=== PATIENT | male | born 1940 | race Caucasian/White ===

== ENCOUNTER 2022-01-01 16:29 | Inpatient (IN) | payer OTHER, MEDICARE ==
[~2022-01-01] VITALS: Ht 179.1 cm; Wt 101.7 kg
[2022-01-01] MEDS ORDERED: LIPITOR10 MG PO (22:40)
[2022-01-01] MEDS ORDERED: AMANTADINE100 M1 PO (22:40)
[2022-01-01] MEDS ORDERED: COZAAR 25 MG TA25 M1 PO (22:40)
[2022-01-01] MEDS ORDERED: LOPRESSOR50 MG PO (22:41)
[2022-01-01] MEDS ORDERED: NAMENDA 10 MG T10 MG PO (22:41)
[2022-01-01] MEDS ORDERED: CELEXA 20 MG TA20 MG PO (22:41)
--- NOTE | 2022-01-01 23:46 | NUR ---
PATIENT WAS ADMITTED FROM ER TO 517A FOR DEMENTIA BEHAVIOR/DISTURBANCES UNDER THE CARE OF DR. NUNN. HE IS ALERT AND AWAKE. VERY AGGITATED AND CONFUSED. HE DENIES PAINS/IS/AVH/HI.HE IS THREE AFFILIATED AND ABLE TO MAKES HIS NEEDS KNOWN.LUNGS ARE CLEAR BS ACTIVE X4 QUADS. HE IS CONTINENT/ INCONTINIET OF BLADDER. HE HAS MOLES ALL OVER HIS BACK AND A CYST AT HIS UPPER TOP BUTTOCKS AREA. CALL TO DR MADSEN FOR MEDICATION VERIFICATION AND SOME ANTIBIOTICS TO BE CLEARIFIED AT AM NO INDICATIONS WERE NOTED AT THIS TIME.CONSULT CALL PLACED TO PRISCILA LORENZO. CALL TO SPOUSE FOR CONSENT NO RESPONSE AND MAIL BOX WAS FULL WILL REPEAT IN AM. VITAL SIGN ARE STABLE AT 97.3, 160/73,60,18, 94% AND WT @ 231.2 LBS. PATIENT IN BED YELLING"HELP" WITHOUT ANY SPECIFIC REQUEST AT THIS TIME. YELLOW SOCKS ON, BED IS LOW, LOCKED AND ALARMED. CONTINUE CARE
[2022-01-02 05:53] LABS: CHOLESTEROL 109 mg/dL (<200); HDL CHOLESTEROL 43 mg/dL (>40); LDL CHOLESTEROL 48 mg/dL (<100); TC:HDL 2.5 Ratio (Not establshd); TRIGLYCERIDE 92 mg/dL (<150); VLDL 18 mg/dL (<40)
[2022-01-02 05:57] LABS: SERUM ASSESSMENT Clear
[2022-01-02 09:32] VITALS: BP 147/94
[2022-01-02 09:52] LABS: CALCIUM 8.7 mg/dL (8.5-10.1); CREATININE 1.2 mg/dL (0.7-1.3); POTASSIUM 3.6 mmol/L (3.5-5.1)
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
--- NOTE | 2022-01-02 16:14 | NUR ---
Meeting with patient and Dr. Basilio in 's office. Patient was somewhat argumentative. Patient reported to Dr. Basilio that he was no depressed and did not have dementia. Dr. Basilio reported that the nurses and records from [facility] reflected this. Patient became agitated expressing that the nurses do not know what they are doing. Patient reports to being to Felipa since 1962. Patient has 3 children. 1 child is from pancreatic cancer. The remaining 2 children reside in close proximity in the [facility] area. Patient has all male grandchildren. 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 The patient is an only child. He states his father went to school until the 8th grade and that his mother earned a college diploma. The patient reported his parents to still be living. When Dr. Basilio asked how old his parents would be, the patient reported his parents were born in 1910 and 1911 and that they are 35. The patient reports his parents were never diagnosed with Alzheimers and/or dementia and that they were both very smart. The patient was born and raised in [place]. He attended college at [employer], stating it is important to go to school where you intend to practice so you know the law there. The patient reports to having high blood pressure but not knowing the medication he takes for it. The patient denied any physical abuse/trauma. Dr. Basilio completed a SLUMS with the patient. The patient scored a 9.
--- NOTE | 2022-01-02 16:32 | NUR ---
Phone call to Felipa. Scheduled family meeting for 01/05 at 2:30pm
[2022-01-02 19:15] VITALS: BP 142/53
[2022-01-02 19:25] VITALS: BP 142/53
--- NOTE | 2022-01-02 22:10 | EKG ---
[address] [place] [address] ELECTROCARDIOGRAM REPORT Name: LUZ HOROWITZ Room #: 517-A ADM IN [facility].#: [id number] Admission: 01/01/22 Attend Phys: Matthew Basilio DO Discharge: Date of : 38 Report #: [id number] [facility] Test Date: 2022-01-02 Test Time: 16:57:37 Pat Name: LUZ HOROWITZ Department: Room: [facility] A Gender: M Resource Specialist Teacher: VANDA : 1940 Requested By: Matthew Basilio Order Number: [id number] MD: Mandeep Higginbotham Measurements Intervals [place] Rate: 60 P: 43 DE: 243 QRS: -17 QRSD: 93 T: 25 QT: 519 QTc: 519 Interpretive Statements Sinus rhythm FIRST DEGREE AV BLOCK leftward axis deviation NS ST/T wave abnormalities Compared to ECG 07/20/2012 06:51:59 no signficant changes Electronically Signed On 01-02-2022 22:09:55 IT SUPPORT ANALYST by Mandeep Higginbotham [email or web address] <ELECTRONICALLY SIGNED> By: Mandeep Higginbotham MD 01/02/222208 56 56 Mandeep Higginbotham MD /EPI
[2022-01-03 01:06] LABS: GLYCOHEMOGLOBIN (HGB A1C) 5.4 % (4.8-5.6)
--- NOTE | 2022-01-03 02:17 | NUR ---
PATIENT CARE IS WAS RESUMED AT 1900.HE IS AWAKE IN HIS ROOM.HE IS CONFUSSED. IN BED AND ABLE TO VERBALIZE HIS NEEDS. HE IS A MAX ASSIST WITH CARE, TRANSFER AND VINAY-CARE. HE DENIES PAINS/SI/AVH/HI. HE WAS COOPERATIVE WITH CARE. TOOK HIS MEDS WHOLE AND ATE HIS SNACKS.VERY THANKFUL FOR CARE AND ASSISTANCE. VITAL SIGN WNL. BED IS LOW, LOCKED AND ALARMED. Q12 MINUTES CHECK IS ONGOING.
[2022-01-03 08:51] VITALS: BP 153/75
--- NOTE | 2022-01-03 11:18 | NUR ---
The patient's was called to gather information for the patient's assessment. The was able to assist with some information to assist with finishing up a part of his assessment.
--- NOTE | 2022-01-03 12:54 | NUR ---
Alert and orientated to name only this AM. Much quieter today. Calm, cooperative and compliant. Denies SI/HI. Cooperative with ADLs. Breath sounds clear. Reg HR with rub auscultated. Dr. Knox notified when rounding. Color pink with brisk capillary refill and palpable peripheral pulses. Incontinent of yellow urine and liquid brown stool. Active bowel sounds over large, rounded abdomen. Reddness between buttocks, cleaned and zincpaste applied. Able to stand and bear wt. Currently sitting in dining room without s/o distress.
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
[2022-01-03 19:33] VITALS: BP 164/72
--- NOTE | 2022-01-03 21:46 | NUR ---
At onset of shift pt was sitting in day room calmly watching TV. This shift pt was alert and oriented x1. Pt was overall paranoid, uncooperative, angry, and rude to staff. Pt refused to take his medications stating that "no doctor of mine prescribed these." Pt insisted he only takes two vitamins at bedtime. RN went over pt's medications but pt did not believe he was prescribed any of them. Pt asked where his was and RN explained to pt that his was at home and he was in the hospital. Pt asked what hospital he was in, RN stated [facility] on [address] and pt responded "you're incompetent as hell." RN told pt to sleep well and if he needed anything to please let staff know. 12 minute rounded were completed on pt. Pt is a high fall risk. Fall precautions are in place. Will continue to monitor.
[2022-01-03 23:09] VITALS: BP 178/82
[2022-01-03 23:45] VITALS: BP 164/72
--- NOTE | 2022-01-04 02:17 | NUR ---
At 2309 pt was observed by HIM SPECIALIST during rounds to be lying on the floor of his room face down. RN asked pt if he fell and pt made nonsenisical statements. Staff assisted pt with rolling over to his side, then to a sitting position and then to a alyssa chair. While helping pt move to alyssa chair, pt was yelling at staff, calling staff stupid, accusing staff of "bending him." Vital signs were obtained and pt was assessed. No obvious signs of injury and pt denied being in pain. Other questions pt refused to answer, instead yelling at staff "you are incompetent. You don't want to know everything because you are women. Incompetent women." Pt was moved out to day room in alyssa chair to be closer to staff for observation. RN notified propellant charge zone assembler, melissa fischer, hospitalist. Donna Hernandez NP ordered a CT of the head. Pt continued yelling and being verbally hostile towards staff. RN called Salima Farmer and obtained orders for one time dose 5mg Haldol IM to help pt calm down before the CT scan. At time of CT pt was cooperative and less vocal, but was still angry. At this time, CT scan results are pending. Will report back when CT scan results are reported.
[2022-01-04 08:00] VITALS: BP 140/87
[2022-01-04 09:15] VITALS: BP 140/87
--- NOTE | 2022-01-04 13:28 | NUR ---
Assumed pt care this morning from overnight shift. Pt presented alert and oriented to self and place during this time. Pt stated that he needed to call his in order to pay an electricity bill "so that they don't think I'm a freeloader." Pt was assured that he would be able to speak to his on the phone after breakfast, and informed that staff had also spoken to his earlier. Pt informed that his hearing aid vp account director was found, and that his hearing aids were currently charging. Voiced thanks during this time. informed of this as well to help alleviate concerns about hearing aids. Pt stated only depression and anxiety was "from that [employer] power bill." Denied hi/si. Denied hallucinations at this time. Denied pain. Lung sounds clear. Bowel sounds active. Pt has presented restless, and has been assisted to bathroom and helped to walk around several times during this shift. Pt continued to present restless and agitated more so after lunch, and started to curse at staff, and would not stop getting out of chair despite staff redirection. Pt continued to yell that he wanted his , and increasingly started to present agitated by further yelling directed at staff. PRISCILA Farmer called, and IM haldol 5 mg stat given per order. Pt initially stated "I'm not taking this without knowing what it is" but staff explained medication again to him. No manual hold needed during this time. Pt currently sitting in chair and in group. No further concerns at this time.
[2022-01-04 19:16] VITALS: BP 127/61
--- NOTE | 2022-01-04 22:42 | NUR ---
At onset of theatrical scenic designer pt was sitting in alyssa chair in day room. This shift pt was alert and oriented only to self. Pt took his medication crushed in ice cream. Pt and RN conversed some; pt was pleasant during this time. Pt did not know he was in the hospital and did not know what day it was. RN explained to pt that his is at home and cared for. 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 For bed time, RN sat pt in a dark corner of the day room and applied CPAP machine to the patient. Pt can only use his CPAP in eyeline of staff and given pt's fall last night, RN thought it was best to have pt sleep in day room close to staff. Pt denied psych questions and stated he was in a good mood. There was some irritability when CPAP was being applied, but no name calling or delusional statements made. Pt is high fall risk. Fall precautions are in place. Will continue to monitor.
[2022-01-05 09:23] VITALS: BP 158/87
[2022-01-05 09:30] VITALS: BP 158/87
--- NOTE | 2022-01-05 09:45 | NUR ---
New admit to [facility] with dementia and behaviors. On regular diet eating 75-100% of majority of meals. BMI 32.6, obese. On lipitor, lipids wnl. Presents low nutrition risk
--- NOTE | 2022-01-05 16:28 | NUR ---
Family meeting for patient via phone. Present were HAYES Guevara, Felipa (), Carson (son), Skylar Topete (private duty nurse for patient) and the patient. The patient had a difficult time hearing. The patient reported that the doctor was, "committing murder". Due to the patient's difficulty with hearing, not understanding and argumentativeness, the family said their goodbyes and the patient was escorted out of the room. Dr. Basilio reviewed medication. The patient has received care from Dr. Austin with 's memory clinic. Dr. Basilio reported that he normally does not do another existensive workup as the memory care facility would have completed this. The patient currently has approximately 70% care in the home. Dr. Basilio recommended 100% care. Dr. Basilio would like for the patient to remain hospitalized until approximately 01/12 to continue addressing the patient's agitation, aggression and monitor medication as the patient has been somewhat sedated. The patient is in need of outpatient psychiatry. The nurse and Felipa will work on arranging this for the patient tomorrow. The family reports the home already has adaptations in place such as bars in the bathroom.
--- NOTE | 2022-01-05 18:40 | NUR ---
Assumed pt care this morning from overnight shift. Pt presented alert and oriented to self only, and was hostile with staff, yelling and screaming when staff approached. Injection of haldol given by overnight shift at shift change due to these behaviors. Pt calmed after this, being more amicable to sitting in chair, and stopped cursing at staff after injection. Pt denied depression prior to this, but stated anxiety, and yelled "I want to go home damn it- get me the fuck out of here." Pt denied hallucinations though could be seen speaking to self and cursing aloud even if staff was not present by pt. Pt did not make any si/hi comments at this time. No pain reported by pt. Spoke with pt , Felipa, and home health nurse Skylar during this shift. Updated both on pt status at this time. Pt hearing aids charged, and pt able to speak to and home health nurse at this time. Family meeting had @2:30. Passed along information provided by and home health nurse that pt son, Carson, wanted to join meeting, to CM. Pt took all medications crushed in pudding today. All medications taken and well tolerated. Toileted several times during shift. Spoke with after family meeting with assistance of cm. No further concerns.
[2022-01-05 19:40] VITALS: BP 140/75
[2022-01-05 19:46] VITALS: BP 140/75
--- NOTE | 2022-01-06 04:14 | NUR ---
PATIENT CARE WAS RESUMED AT 1900. HE IS AWAKE AND ABLE TO VERBALIZE NEEDS. LUNGS ARE CLEAR, BS ACTIVE X4 QUAD. MAS ASISTT WITH CARE. HE TOOK HIS MEDS WHOLE. INCONTININET OF BLADDER. BED IS LOW, LOCKRD AND [id number] CHECK IS ON GOING. HE DENIES PAINS/SI/AVH/HI.
[2022-01-06 07:00] VITALS: BP 146/61
[2022-01-06 09:02] VITALS: BP 146/61
--- NOTE | 2022-01-06 10:16 | NUR ---
RESUMMED CARE FROM OVERNIGHT SHIFT THIS AM PATIENT SITTING IN DAY ROOM QUIET. PATIENT ATE BREAKFAST TOOK MEDICATION WITHOUT INCIDENCE; PATIENT DENIES SI/HI/AH/VH AT PRESENT. PATIENT ALERT ORIENTED TIMES 2 CALM COOPERATIVE THIS AM. PAIIENTS ABDOMEN SOFT BOWEL SOUNDS PRESENT PATIENTS LUNGS CLEAR. PATIENT DENIES DEPRESSION OR ANXIETY. PATIENT WANTS TO GO HOME ASLEEP DURING MORNING GROUP. WILL CONTINUE TO MONITOR PATIENT FOR SAFETY AND BEHAVIORS.
[2022-01-06 18:51] VITALS: BP 138/70
[2022-01-06 19:25] VITALS: BP 138/70
--- NOTE | 2022-01-06 23:02 | NUR ---
PATIENT CARE WAS RESUMED AT 1900. HE WAS IN THE DAY AREA TALKING WITH FAMILY MEMBER ON THE PHONE. HE CONTINUE TO WANT TO GET UP FROM CHAIR AND NOT FOLLOWING DIRECTION FROM THE NURSING STAFF. HE TOOK HIS MEDS WHOLE AND MAX ASSIST WITH CARE AND TRANSFER. DENIES PAINS/SI/AVH/HI. HE IS SLEEING WITH A C-PAP AT THE DININIG AREA. SPOKE WITH SON MISAEL. Q12 MINUTES CHECK ONGOING. CONTINUE CARE
--- NOTE | 2022-01-07 08:40 | NUR ---
Phone call to son, Carson, with nurse fermentation manager, Meghana. SW and nurse fermentation manager informed Carson that someone who identified themselves as the patient's son had called multiple times and had been beligerant. Carson stated that he didn't make any calls and that it may have been his brother, Roscoe ([phone]), who resides in [place]. The SW and nurse fermentation manager provided Carson with the confidentiality code for the patient as well as the best times to reach out (10-12, 4-6). Carson reported that he would like for the patient to be able to return home as he knows that is what the mother wants.
--- NOTE | 2022-01-07 09:44 | NUR ---
IRRITABLE AND DEMANDING UPON INITIAL APPROACH THIS AM-THIS RN ASSISTING PATIENTS INTO THE DAYROOM AND SERVING BREAKFAST-PT INSISTING THAT THOSE TASKS CAN WAIT HE NEEDS ASSISTANCE IN MAKING A PHONE CALL "RIGHT NOW" INFORMED THAT PHONES ARE NOT AVAILABLE UNTIL AFTER BREAKFAST AND HE BEGAN TO SWEAR AT THIS NURSE. WAS CALMER AFTER EATING BREQAKFAST AND DID TAKE HIS MEDICATIONS WITHOUT INCIDENT. ORIENTED TO PERSON ONLY
[2022-01-07 09:55] VITALS: BP 158/74
[2022-01-07 10:45] VITALS: BP 182/91
--- NOTE | 2022-01-07 11:33 | EKG ---
[address] [place] [address] ELECTROCARDIOGRAM REPORT Name: LUZ HOROWITZ Room #: 517-A ADM IN ..#: [id number] Admission: 01/01/22 Attend Phys: Matthew Basilio DO Discharge: Date of : 36 Report #: [id number] [facility] Test Date: 2022-01-07 Test Time: 10:41:29 Pat Name: LUZ HOROWITZ Department: Room: [facility] A Gender: M Shell Fisherman: MORGAN : 1940 Requested By: Matthew Basilio Order Number: [id number] MD: Sadi Vivar Measurements Intervals Hamill Rate: 53 P: 33 OH: 255 QRS: -17 QRSD: 96 T: 2 QT: 460 QTc: 432 Interpretive Statements Sinus rhythm Prolonged OH interval Probable left ventricular hypertrophy Anterior Q waves, possibly due to LVH Compared to ECG 01/02/2022 16:57:37 Left ventricular hypertrophy now present Q waves now present Left-axis deviation no longer present Electronically Signed On 01-07-2022 11:33:00 [employer] GR[employer] by Sadi Vivar [email or web address] <ELECTRONICALLY SIGNED> By: Sadi Vivar MD, FACC 01/07/22 1133 [id number] [id number] Sadi Vivar MD, [facility] /EPI
--- NOTE | 2022-01-07 11:59 | NUR ---
INCONTINENT OF LARGE AMOUNT OF STOOL/URINE-REQUIRES ASSIST 0F 2-3 STAFF TO PROVIDE INCONTINENT CARE.
--- NOTE | 2022-01-07 12:00 | NUR ---
BEGAN YELLING/SCREAMING AT GUITAR REPAIRER WHEN THEY ATTEMPTED TO PUSH UP TO TABLE TO EAT LUNCH TRAY-YELLING OBSCENITIES AT NURSE INSISTING THAT HE BE BROUGHT THE PHONE IMMEDIATLY.HAYES CONTACTED
[2022-01-07 19:35] VITALS: BP 149/67
--- NOTE | 2022-01-08 01:42 | NUR ---
PATIENT CARE WAS RESUMED AT 1900. HE IS A MAX ASSIST WITH CARE. LUNGS ARE CLEAR BS ACTIVE X4 QUAD. HE DENIES PAINS/SI/AVH/HI. HE TOOK OFF HIS C-PAP.HE IS ABLE TO VERBALIZE HIS NEEDS. TOOK HIS MEDS WHOLE. MAX ASIST WITH TRANSFER AND VINAY CARE. YELLOW TOP AND SOCKS ARE ON. BED IS LOW LOCKED AND ALARMED. [id number] CHECK IS ONGOING. CONTINUE CARE
[2022-01-08 07:39] VITALS: BP 150/64
[2022-01-08 09:24] VITALS: BP 150/64
--- NOTE | 2022-01-08 10:16 | NUR ---
RESUMMED CARE FROM OVERNIGHT SHIFT THIS AM PATIENT SITTING IN DAY ROOM QUIET. PATIENT ALERT ORIENTED TO SELF AND SITUATION, PATIENT DENIES SI/HI/AH/VH AT PRESENT. PATIENT ATE BREAKFAST TOOK MEDICATION WITHOUT INCIDENCE. PATIENT IS AT TIMES CONFUSED HE WANTS TO GO HOME. PATIENTS ABDOMEN SOFT BOWEL SOUNDS PRESENT. PATIENTS LUNGS CLEAR PATIENT IS IN GROUP BUT MIMIMAL PARTICIPATION. PATIENT CALM COOPERATIVE WILL CONTINUE TO MONITOR PATIENT FOR SAFETY AND BEHAVIORS.
[2022-01-08 19:50] VITALS: BP 151/70
--- NOTE | 2022-01-09 04:54 | NUR ---
Assumed care of pt at 1900. Pt calm et cooperative this shift. Took medications whole without difficulty. Ambulates the halls with assistance of gerichair this shift. Socialized with peers in dayroom watching TV until HS. VSWNL. Health assessment with no abnormalities noted this shift. Pt denies SI/Hi at present time. Currently resting in gerichair with eyes closed. Will continue to monitor per unit protocol.
[2022-01-09 09:48] VITALS: BP 174/87
--- NOTE | 2022-01-09 11:22 | NUR ---
Drowsy this AM needing more assistance to stand. Orientated to name only. Calm, cooperative and compliant. Breath sounds clear. Reg HR with rub auscultated. Color pink with brisk capillary refill and palpable peripheral pulses. +2 edema in lower extremities. Incontinent of yellow urine and smear of stool. Active bowel sounds over soft, rounded abdomen. Able to stand with assistance. Zinc paste applied to buttocks, slight reddness. Was able to brush teeth and wash face when handed items.
[2022-01-09 12:30] VITALS: BP 144/76
--- NOTE | 2022-01-09 14:33 | NUR ---
Dr. Basilio informed the SW that the patient's did not feel the patient needed [address] Basilio is scheduling a family meeting with the family today. The SW informed Dr. Basilio of training and that the SW would probably get out of training after 2:00pm.
--- NOTE | 2022-01-09 14:59 | NUR ---
- facilitated phone call with patient and patient's . Patient was brought into his room and the phone put on speaker so he could hear his more easily. Patient and , Felipa, spoke lovingly with each other, expressing love and how much they missed each other. Patient was appropriate and appreciative.
[2022-01-09 19:51] VITALS: BP 150/80
--- NOTE | 2022-01-10 05:39 | NUR ---
Assumed care of pt at 1900. Pt calm et cooperative this shift. Took medications whole without difficulty. Pt isolated in room et in bed most of shift. Ambulation was not witnessed this shift. VSWNL. Health assessment with no abnormalities noted this shift. Pt denies SI/HI at present time. Pt's room was moved into a shared room this shift. Currently resting in bed with eyes closed. Will continue to monitor per unit protocol.
[2022-01-10 10:41] VITALS: BP 160/88
[2022-01-10 11:15] VITALS: BP 135/68
--- NOTE | 2022-01-10 11:29 | NUR ---
Alert and orientated to name only this AM. Denies SI/HI. Calm, cooperative and compliant with meds this AM. Breath sounds clear. Reg HR with rub auscultated. Color pink with brisk capillary refill and palpable peripheral pulses. +1 edema in lower extremities. Brief dry this AM. Active bowel sounds over soft, rounded abdomen. Last BM yesterday. Sitting in chair in day room all AM sleeping. Ate 100% of breakfast with assistance.
--- NOTE | 2022-01-10 13:29 | NUR ---
Phone call to Felipa regarding discharge. Felipa reported the patient would be returning home. Felipa would like for discharge to be coordinated with the private nurse, Skylar. Felipa further reported the patient is unable to get in and out of the car. The will arrange Express.
[2022-01-10 20:04] VITALS: BP 155/55
--- NOTE | 2022-01-10 23:13 | NUR ---
At onset of manufacturing supervisor 2nd shift pt was sitting in alyssa chair in day room. This shift pt was sleeping but arousable and only oriented to self. Pt did say hello to RN and stated he was doing "fine." Pt did keep his eyes shut for most of interaction. Pt was compliant with vital signs and medications. Pt did not answer psych questions, but there was no sign of distress indicating SI or HI. Pt was overall calm. Pt is a high fall risk. Fall precautions are in place. Will continue to monitor.
[2022-01-11 08:45] VITALS: BP 166/78
[2022-01-11 08:51] VITALS: BP 169/72
[2022-01-11 10:55] VITALS: BP 166/78
--- NOTE | 2022-01-11 17:20 | NUR ---
Assumed pt care this morning from overnight shift. Pt presented alert and oriented to self only during this time, and was resistant to cares during this shift. Pt dressed, toileted, and assisted with glasses and hearing aides this morning to help with morning adls. Pt denied depression and anxiety at this time, mumbling "no, why would I have that" to staff. Pt denied si/hi at this time. Pt denied hallucinations, though was noted to speak to self and mumble on occassion. Pt voiced wanting to go home during assessment, and would ask when he would go home. Pt assured that provider would be seeing him today and that primary psychiatrist would be in tommorrow. Pt denied pain when asked. Bowel sounds active. Lung sounds clear. Last BM 2 days ago per report. Slight bradycardia- 54 with recheck 58. Held metoprolol. Pt has been toileted and repositioned on this shift numerous times. Pictures of pt cyst and moles on back taken per hospitalist order and placed in chart. Pt continues to remain confused and combative to cares. Has spoken to today. Currently in bed resting. No further concerns at this time.
[2022-01-11 19:30] VITALS: BP 137/79
[2022-01-11 19:40] VITALS: BP 166/78
--- NOTE | 2022-01-11 22:08 | NUR ---
Assumed care on 01/11/22 @ 1900, in bed, awakened to voice and with encouragement took meds whole with water. HRRR, Lungs CTA bilat, ABD N x 4Q. Patient takes his hospital gown off and sleeps with no clothes on. High fall risk, bed in low position, bed alarm set, will continue to monitor for comfort and safety as per unit protocol.
[2022-01-12 08:00] VITALS: BP 150/86
--- NOTE | 2022-01-12 10:36 | NUR ---
Nutrition followup: pt continues on [facility] unit with dementia/behaviors. Eating average of 70% of meals, occasional refusal. Possible 7# weight decline in 10 days per [employer] weights. BMI 31, obesity class 1. Would suggest obtaining a standing scale weight for accuracy. Nsg reported pt is requiring to be fed by staff right now. On statin. BM 01/09. Low nutrition risk.
--- NOTE | 2022-01-12 16:06 | NUR ---
HAYES and Dr. Basilio contacted patient's , Felipa. Felipa had left multiple messages regarding discharge and concern for the patient as she felt he was over medicated. The SW and Dr. Basilio listened to Felipa's concerns. Dr. Basilio informed Felipa that the patient would be discontinued from [facility] and that an order to check the patient's ammonia level will be entered. Felipa reported the patient's private duty nurse, Skylar, is arranging transportation for the patient. The SW will schedule an appointment with the patient's primary care physician, Dr. Mejía. The SW will also provide a psychiatric referral for the patient.
[2022-01-12 16:51] LABS: BE(vivo) -0.1 mmol/L (-2 to +3); HCO3 23.9 mmol/L (22.0-26.0); PCO2 37.5 mmHg (35.0-45.0); pH 7.423 (7.360-7.450); sO2 93.5 % (92.0-98.0)
--- NOTE | 2022-01-12 17:19 | NUR ---
PT ALERT AND ORIENTED TIMES TWO. PT VERY LETHARGIC THIS MORNING. VSS. PT DENIES SI/HI/AH/VH/PAIN. PT TOLERATES MEDS. PT HAS LITTLE INTERACTION WITH STAFF AND PEERS. WILL CONTINUE TO MONITOR.
[2022-01-12 19:30] VITALS: BP 148/92
[2022-01-12 20:19] VITALS: BP 146/100
--- NOTE | 2022-01-12 21:44 | NUR ---
PATIENT CARE WAS RESUMED AT 1900. HE WAS AT THE [facility] ON A RECLINER. DENIES PAINS AND TOOK HIS MEDS WHOLE. BS ACTIVE X4 QUAD. ABD IS SOFT MODERATELY SIZE.HE DENIES PAINS/SI/AVH/HI. CONTINUE CARE.
== END 2022-01-13 | disposition short-term general hospital (02) | DRG 884 ==
LOC: SBH 16:29
PROVIDERS: Hospitalist; Nurse Practitioner Family; ADMIT Psychiatry & Neurology Psychiatry; ATTEND Psychiatry & Neurology Psychiatry
DX: F03.91 Unspecified dementia, unspecified severity, with behavioral disturbance (principal); F01.51 Vascular dementia, unspecified severity, with behavioral disturbance; N39.0 Urinary tract infection, site not specified; Z20.822 Contact with and (suspected) exposure to COVID-19; E78.5 Hyperlipidemia, unspecified; I10 Essential (primary) hypertension; G47.00 Insomnia, unspecified; G47.33 Obstructive sleep apnea (adult) (pediatric); G62.9 Polyneuropathy, unspecified; Z66 Do not resuscitate; E21.3 Hyperparathyroidism, unspecified; E66.01 Morbid (severe) obesity due to excess calories; F41.9 Anxiety disorder, unspecified; F32.A Depression, unspecified; E53.8 Deficiency of other specified B group vitamins; R40.0 Somnolence; Z87.442 Personal history of urinary calculi; Z82.49 Family history of ischemic heart disease and other diseases of the circulatory system; Z87.891 Personal history of nicotine dependence; Z88.1 Allergy status to other antibiotic agents; Z88.2 Allergy status to sulfonamides; Z86.73 Personal history of transient ischemic attack (TIA), and cerebral infarction without residual deficits; Z68.31 Body mass index [BMI] 31.0-31.9, adult; Z88.8 Allergy status to other drugs, medicaments and biological substances
CPT/HCPCS: 10880

== ENCOUNTER 2022-01-01 16:30 | Emergency (ER) | payer OTHER, MEDICARE ==
[~2022-01-01] VITALS: Ht 180.3 cm; Wt 111.1 kg
[2022-01-01 20:45] VITALS: BP 176/76
[2022-01-01] MEDS ORDERED: LIPITOR10 MG PO (22:40)
[2022-01-01] MEDS ORDERED: AMANTADINE100 M1 PO (22:40)
[2022-01-01] MEDS ORDERED: COZAAR 25 MG TA25 M1 PO (22:40)
[2022-01-01] MEDS ORDERED: LOPRESSOR50 MG PO (22:41)
[2022-01-01] MEDS ORDERED: CELEXA 20 MG TA20 MG PO (22:41)
[2022-01-01] MEDS ORDERED: NAMENDA 10 MG T10 MG PO (22:41)
== END 2022-01-01 20:45 ==
LOC: ER 16:30
PROVIDERS: Emergency Medicine
DX: F03.90 Unspecified dementia, unspecified severity, without behavioral disturbance, psychotic disturbance, mood disturbance, and anxiety (principal); Z88.2 Allergy status to sulfonamides; Z20.822 Contact with and (suspected) exposure to COVID-19